=== PATIENT | female | born 1950 | race Caucasian/White ===

== ENCOUNTER 2025-09-22 12:21 | Emergency (ER) | payer OTHER ==
[~2025-09-22] VITALS: Ht 165.1 cm; Wt 55.8 kg
[2025-09-22] MEDS ORDERED: LIDOCAINE 0.5%-EPI 1:200,000 50 ML VIAL ONE (12:36)
[2025-09-22] MEDS ORDERED: TDAP [DIPH/PERTUSSIS/TET] 0.5 ML VIAL IM ONE (13:43)
[2025-09-22] MEDS: TDAP [DIPH/PERTUSSIS/TET] 0.5 ML VIAL IM ONE (13:50)
[2025-09-22 13:56] VITALS: BP 131/65; TEMP 98.2; O2SAT 98
== END 2025-09-22 13:56 | disposition home or self-care (01) ==
LOC: ER 12:29
DX: S51.811A Laceration without foreign body of right forearm, initial encounter (principal); Z88.0 Allergy status to penicillin; Z60.2 Problems related to living alone; V89.2XXA Person injured in unspecified motor-vehicle accident, traffic, initial encounter; Y93.89 Activity, other specified; Y92.410 Unspecified street and highway as the place of occurrence of the external cause; Y99.8 Other external cause status
CPT/HCPCS: 12004; 73090; 90471; 90715; 99283; A6403; J3490